=== PATIENT | male | born 1945 | race Caucasian/White ===

== ENCOUNTER 2022-11-15 09:07 | Day surgery (SDC) | payer OTHER ==
[2022-11-15] VITALS (20 sets, daily range): BP systolic 106–153; BP diastolic 65–111
[~2022-11-15] VITALS: Ht 170.2 cm; Wt 92.0 kg
[~2022-11-15 09:07] MED LIST: ACETAMINOPHEN500 MG PO; AMLO10 PO; Aspir 8181 MG PO; CLOP75 PO; Crestor20 MG PO; HYDR1TAB94 PO; Isosorbide Mono30 MG PO; LEVSOD100 PO; Loratadine10 MG PO; NITR.4SL SL; NITR.6SL SL; SPIR25 PO; VITAMIN D310 MC4 PO; [UNRECOGNIZED DRUG - CODE] PO
== END 2022-11-15 14:50 | disposition home or self-care (01) ==
LOC: MHTC 09:07
PROC: B205YZZ Plain Radiography of Left Heart using Other Contrast (ICD-10-PCS; principal; 2022-11-15)
PROC: 4A023N7 Measurement of Cardiac Sampling and Pressure, Left Heart, Percutaneous Approach (ICD-10-PCS; principal; 2022-11-15)
DX: R07.89 Other chest pain (principal); I25.10 Atherosclerotic heart disease of native coronary artery without angina pectoris; I10 Essential (primary) hypertension; E78.5 Hyperlipidemia, unspecified; E03.9 Hypothyroidism, unspecified; Z95.5 Presence of coronary angioplasty implant and graft; Z88.5 Allergy status to narcotic agent; Z79.82 Long term (current) use of aspirin; Z79.02 Long term (current) use of antithrombotics/antiplatelets; Z79.890 Hormone replacement therapy; Z79.899 Other long term (current) drug therapy
CPT/HCPCS: 76937; 93458; 99152; 99153; C1769; C1894; J1644; J2250; J3010; J7030; J7050; Q9967

== ENCOUNTER 2023-10-18 06:10 | Day surgery (SDC) | payer OTHER ==
[~2023-10-18] VITALS: Ht 167.6 cm; Wt 83.7 kg
[~2023-10-18 06:10] MED LIST changes: +Lactated Ringer's 1,000 ML IV ONE
[2023-10-18] MEDS ORDERED: NS 50 ML IV ONE (06:26)
[2023-10-18] MEDS ORDERED: CeFAZolin Sodium 2,000 MG VIAL ONE (06:26)
[2023-10-18] MEDS ORDERED: EPLE25 PO (06:49)
[2023-10-18] MEDS ORDERED: METO25ER PO (06:50)
[2023-10-18] MEDS ORDERED: Midazolam HCl 1MG / ML 2ML Vial ONE (06:57)
[2023-10-18] MEDS ORDERED: propofoL 20 ML IV ONE (06:57)
[2023-10-18] MEDS ORDERED: FentaNYL Citrate 50 MCG/ML 2 ML Injection ONE ×2 (06:57→10:03)
[2023-10-18] MEDS ORDERED: EPINEPhrine HCl 1 MG/ML 1ML Amp ONE (06:58)
[2023-10-18] MEDS ORDERED: Dexamethasone Sod Phos 10 MG/ML 1ML VIAL ONE (06:58)
[2023-10-18] MEDS ORDERED: Ondansetron HCl 2 MG / ML 2ML Vial ONE (06:58)
[2023-10-18] MEDS ORDERED: Bupivacaine 0.5% HCl 5 MG/ML 30MLVIAL ONE (06:59)
[2023-10-18] MEDS ORDERED: Lidocaine 2%-Epineph 1:200000 20 ML SDV ONE (06:59)
[2023-10-18] MEDS ORDERED: Lactated Ringer's 1,000 ML IV ONE ×2 (07:16→08:11)
--- NOTE | 2023-10-18 07:39 | NUR ---
10/18/23 0739 Alyssa Vargas BLOCK COMPLETED BY DR WINTERS. SEE ANESTHESIA RECORD FOR DETAILS. PT TOLERATED WELL. PT MONITORED WITH PULSE OX DURING PROCEDURE. 4L OF SUPPLIMENTAL O2 VIA NASAL CANULA. SATS ARE NOW 96%. PT READY FOR OR.
[2023-10-18] MEDS ORDERED: Ropivacaine 0.5% HCl/Pf 123.125 MG,EPINEPHrine HCL 0.25 MG,Ketorolac Tromethamine 15 MG... INFIL SCH (07:45)
[2023-10-18] MEDS ORDERED: Tranexamic Acid 1000 MG/10 ML 10ML Vial (SDV) XX ONE (08:00)
--- NOTE | 2023-10-18 08:31 | NUR ---
10/18/23 0831 Osiris Rodriges SINGLE DOSE OF TXA ADMINISTERED BY DR WINTERS AT 0829.
[2023-10-18] MEDS ORDERED: HYDROcodone 5-APAP 325 TAB ONE ×2 (10:27→11:24)
[2023-10-18 10:54] VITALS: BP 124/84
--- NOTE | 2023-10-18 11:36 | NUR ---
10/18/23 1136 Heather Bradshaw TOOK OVER CARE FROM [place] SIMMONS WHEN PATIENT GOT TO STEP DOWN. PATIENT IN 9 PAIN. GAVE PATIENT A PAIN PILL PER ORDERS AND WAITED 30 MINUTES. PATIENT STATED HIS PAIN CAME DONW TO A 6 BUT IS STILL NOT TOELRABLE. PER ORDERS RN GAVE AN ADDITIONAL DOSE OF NORCO 5/325. PATIENT DENIES NAUSEA AND SHORTNESS OF BREATH.
== END 2023-10-18 11:55 | disposition home or self-care (01) ==
LOC: ORSCSDS 06:10
PROVIDERS: Podiatrist Foot & Ankle Surgery
PROC: 0SRG0JZ Replacement of Left Ankle Joint with Synthetic Substitute, Open Approach (ICD-10-PCS; principal; 2023-10-18 07:30)
PROC: 0Q8M0ZZ Division of Left Tarsal, Open Approach (ICD-10-PCS; principal; 2023-10-18 07:30)
DX: M19.072 Primary osteoarthritis, left ankle and foot (principal); I25.10 Atherosclerotic heart disease of native coronary artery without angina pectoris; Z79.02 Long term (current) use of antithrombotics/antiplatelets; Z85.46 Personal history of malignant neoplasm of prostate; I10 Essential (primary) hypertension; E03.9 Hypothyroidism, unspecified; E78.5 Hyperlipidemia, unspecified; Z79.899 Other long term (current) drug therapy
CPT/HCPCS: A9270; C1713; C1769; C1776; J0171; J0690; J0735; J1100; J1885; J2250; J2405; J2704; J2795; J3010; J7120

== ENCOUNTER 2024-09-16 08:47 | Emergency (ER) | payer OTHER ==
[~2024-09-16] VITALS: Ht 167.6 cm; Wt 90.7 kg
[~2024-09-16 08:47] MED LIST changes: +EPLE25 PO; -Lactated Ringer's 1,000 ML IV ONE; +METO25ER PO
[2024-09-16 10:44] VITALS: BP 157/76
== END 2024-09-16 10:45 | disposition home or self-care (01) ==
LOC: ER 08:47
DX: I97.630 Postprocedural hematoma of a circulatory system organ or structure following a cardiac catheterization (principal); Y83.8 Other surgical procedures as the cause of abnormal reaction of the patient, or of later complication, without mention of misadventure at the time of the procedure; E03.9 Hypothyroidism, unspecified; E78.5 Hyperlipidemia, unspecified; Z88.5 Allergy status to narcotic agent; Z79.82 Long term (current) use of aspirin; Z79.890 Hormone replacement therapy; Z79.899 Other long term (current) drug therapy
CPT/HCPCS: 76882; 99284-25